=== PATIENT | female | born 1975 | race Hispanic/Latino ===

== ENCOUNTER 2020-05-10 09:17 | Emergency (ER) | payer OTHER ==
[~2020-05-10] VITALS: Ht 157.5 cm; Wt 95.3 kg
[2020-05-10] MEDS ORDERED: HYDROCODONE/APAP 7.5MG-325MG 1 EA TAB PO ONE (10:00)
== END 2020-05-10 15:30 | disposition home or self-care (01) ==
LOC: ER 09:23
DX: S92.022A Displaced fracture of anterior process of left calcaneus, initial encounter for closed fracture (principal); S92.252A Displaced fracture of navicular [scaphoid] of left foot, initial encounter for closed fracture; W00.0XXA Fall on same level due to ice and snow, initial encounter; Y93.01 Activity, walking, marching and hiking; Y92.008 Other place in unspecified non-institutional (private) residence as the place of occurrence of the external cause; M19.90 Unspecified osteoarthritis, unspecified site
CPT/HCPCS: 99284